=== PATIENT | female | born 1985 | race Caucasian/White ===

== ENCOUNTER 2020-12-18 18:33 | Emergency (ER) | payer OTHER ==
[2020-12-18 19:06] VITALS: TEMP 97.9
[2020-12-18] MEDS ORDERED: SODIUM CHLORIDE 0.9% 500 ML 500 ML IV STA (20:08)
[2020-12-18] MEDS ORDERED: ACETAMINOPHEN TAB 500 MG TAB PO STA (20:09)
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
[2020-12-18 20:47] LABS: Basophils # (A) 0.1 k/uL (0-0.2); Basophils % (A) 0 %; Eosinophils # (A) 0.1 k/uL (0-0.7); Eosinophils % (A) 1 %; HCT 39.8 % (34.0-46.0); HGB 13.6 gm/dL (11.4-16.0); Lymphocytes # (A) 1.6 k/uL (1.0-4.8); Lymphocytes % (A) 11 %; MCH 29.8 pg (25.0-35.0); MCHC 34.1 g/dL (31.0-37.0); MCV 87.5 fL (80.0-100.0); Mean Platelet Volume 7.6; Monocytes # (A) 0.7 k/uL (0-1.0); Monocytes % (A) 5 %; Neutrophils # (A) 11.8 k/uL (1.3-7.7); Neutrophils % (A) 83 %; Platelet Count 349 k/uL (150-450); RBC 4.55 m/uL (3.80-5.40); RDW 12.7 % (11.5-15.5); WBC 14.2 k/uL (3.8-10.6)
[2020-12-18 20:49] LABS: Appearance,Urine Clear (Clear); Bacteria,Urine Rare /hpf; Bilirubin,Urine Negative (Negative); Blood,Urine Moderate (Negative); Color,Urine Yellow; Glucose,Urine (UA) Negative (Negative); Ketones,Urine Negative (Negative); Leukocyte Esterase,Urine Negative (Negative); Mucus,Urine Rare /hpf; Nitrite,Urine Negative (Negative); Protein,Urine Negative (Negative); RBC,Urine 1 /hpf (0-5); Specific Gravity,Urine 1.014 (1.001-1.035); Squamous Epithelial Cell,Urine 1 /hpf (0-4); Urobilinogen,Urine <2.0 mg/dL (<2.0); WBC,Urine 2 /hpf (0-5)
[2020-12-18 20:51] VITALS: RESP 18
[2020-12-18 20:56] LABS: INR 0.9 (<1.2); Partial Thromboplastin Time 23.6 sec (22.0-30.0); Prothrombin Time 9.7 sec (9.0-12.0)
[2020-12-18 20:57] LABS: ALT 32 U/L (4-34); AST 25 U/L (14-36); African American GFR (CKD) >90 (>60 ml/min/1.73 sqM); Albumin 4.2 g/dL (3.5-5.0); Alkaline Phosphatase 85 U/L (38-126); Anion Gap 7 mmol/L; Blood Urea Nitrogen 12 mg/dL (7-17); Calcium 9.3 mg/dL (8.4-10.2); Carbon Dioxide 24 mmol/L (22-30); Chloride 107 mmol/L (98-107); Glucose 98 mg/dL (74-99); Non-African American GFR(CKD) >90 (>60 ml/min/1.73 sqM); Sodium 138 mmol/L (137-145); Total Bilirubin 0.2 mg/dL (0.2-1.3); Total Protein 7.1 g/dL (6.3-8.2)
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
--- NOTE | 2020-12-18 21:35 | XR ---
EXAMINATION TYPE: XR foot complete RT DATE OF EXAM: 12/18/2020 COMPARISON: None HISTORY: Pain TECHNIQUE: 3 views FINDINGS: Metatarsals are intact. I see no fracture nor dislocation. Joint spaces are normal. IMPRESSION: Negative right foot exam. No fracture.
--- NOTE | 2020-12-18 21:37 | XR ---
EXAMINATION TYPE: XR knee complete LT DATE OF EXAM: 12/18/2020 COMPARISON: 05/10/2010 HISTORY: Pain TECHNIQUE: 3 views FINDINGS: I see no fracture nor dislocation. Joint spaces are normal. There are no pathologic calcifi cations. IMPRESSION: Negative left knee exam. No change.
[2020-12-18] MEDS ORDERED: ACET/COD 300 MG/30 MG STARTER PACK 6 TAB BTL PO STA (22:07)
[2020-12-18 22:14] VITALS: BP 137/57; PULSE 71
== END 2020-12-18 22:15 | disposition home or self-care (01) ==
LOC: EC 18:33
DX: S30.1XXA Contusion of abdominal wall, initial encounter (principal); S20.212A Contusion of left front wall of thorax, initial encounter; S20.211A Contusion of right front wall of thorax, initial encounter; S80.02XA Contusion of left knee, initial encounter; F41.9 Anxiety disorder, unspecified; F17.200 Nicotine dependence, unspecified, uncomplicated; V43.52XA Car driver injured in collision with other type car in traffic accident, initial encounter; Y92.410 Unspecified street and highway as the place of occurrence of the external cause
CPT/HCPCS: 36415; 80053; 84484; 85025; 85610; 85730; 81001; 81025; 73562; 73630; 71260; 74177; 99284; 96360; 96361; Q9967

== ENCOUNTER → 2021-07-06 | Outpatient (CLI) | payer BC ==
--- NOTE | 2021-07-06 16:06 | FL ---
EXAMINATION TYPE: FL hysterosalpingography DATE OF EXAM: 07/06/2021 CLINICAL HISTORY: N97.9 Infertility. TECHNIQUE: The hysterosalpingogram procedure was explained to the patient. The risks, benefits, alte rnatives were discussed. An informed consent was then obtained. Timeout was performed. Patient was placed on the fluoroscopy table in supine view. Speculum was placed. The vaginal vault wa s cleansed with Betadine. The cervix was localized. Catheter was placed through the cervical os and t he balloon inflated. Under fluoroscopic observation contrast was administered. Fluoroscopic imaging w as performed. Overhead radiograph was obtained with delayed image. Discharge instructions were discus sed with the patient. Patient was released having tolerated the procedure very well. FINDINGS: There is a filling defect within the body of the uterus. Patient reports a fibroid which may account for this finding. Consider correlation with MRI pelvis. Others free flow of the contrast through the uterus to the normal appearing fallopian tubes. The fimbriated ends appear normal. There is free spil l promptly without evidence of obstruction. The balloon was deflated and the catheter withdrawn. Cerv ical os appears normal. Overhead radiograph has diminished contrast within the uterus with spill into the vaginal vault. IMPRESSION: 1. Filling defect within the mid body of the uterus may be related to extrinsic fibroid. Consider cor relation with MRI. 2. Patent fallopian tubes with free spill of contrast into the pelvis.
== END | disposition home or self-care (01) ==
LOC: RADUSWWP 13:16
PROVIDERS: ATTEND Obstetrics & Gynecology Obstetrics
DX: N85.8 Other specified noninflammatory disorders of uterus (principal)
CPT/HCPCS: 58340; 74740; Q9967

== ENCOUNTER → 2022-04-24 | Outpatient (CLI) | payer BC ==
[2022-04-24 22:44] LABS: Basophils # (A) 0.04 X 10*3/uL (0.00-0.10); Basophils % (A) 0.5 %; Eosinophils # (A) 0.34 X 10*3/uL (0.04-0.35); Eosinophils % (A) 4.6 %; HCT 39.6 % (37.2-46.3); HGB 13.1 g/dL (12.0-15.0); Immature Grans, Automated 0.3 %; Lymphocytes # (A) 2.01 X 10*3/uL (0.90-5.00); Lymphocytes % (A) 27.2 %; MCH 30.8 pg (27.0-32.0); MCHC 33.1 g/dL (32.0-37.0); Mean Platelet Volume 10.7 fL (9.5-12.2); Monocytes # (A) 0.48 X 10*3/uL (0.20-1.00); Monocytes % (A) 6.5 %; NRBC Per 100 WBC 0 /100 WBCS (0.0-0.0); Neutrophils % (A) 60.9 %; Platelet Count 303 X 10*3/uL (140-440); RBC 4.26 X 10*6/uL (4.10-5.20); RDW 13.4 % (11.5-14.5); WBC 7.39 X 10*3/uL (4.50-10.00)
== END | disposition home or self-care (01) ==
LOC: LABPAT 15:44
PROVIDERS: ATTEND Obstetrics & Gynecology Obstetrics
DX: Z01.812 Encounter for preprocedural laboratory examination (principal)
CPT/HCPCS: 85025

== ENCOUNTER 2022-04-29 09:21 | Day surgery (SDC) | payer BC ==
[2022-04-26 08:34] VITALS: BMI 49.1
[~2022-04-29 09:21] MED LIST: DEXAMETHASONE SOD PHOSPHATE 4 MG/ML 1 ML VIAL IV ONE; HYDROmorphone 0.5 MG/0.5 ML SYRINGE IVP PRN; LIDOCAINE 1% (10MG/ML) FOR IV START INTRADERMA PRN; ONDANSETRON 4 MG/2 ML VIAL IVP ONE; Pre Op ABX Message 1 EACH MISC MISCELLANE ONE; SCOPOLAMINE 1 MG/72 HR PATCH TRANSDERM ONE
[2022-04-29] MEDS: LACTATED RINGERS 1,000 ML IV SCH ×2 (10:35→11:22)
[2022-04-29] MEDS ORDERED: MIDAZOLAM 2 MG/2 ML VIAL ONE (11:24)
[2022-04-29] MEDS ORDERED: PROPOFOL 10 MG/ML 20 ML VIAL IV ONE (11:24)
[2022-04-29] MEDS ORDERED: LIDOCAINE 2% INJ 20 MG/ML (2 ML VIAL) ONE (11:24)
[2022-04-29] MEDS ORDERED: KETOROLAC 30 MG/ML 1 ML VIAL ONE (11:24)
[2022-04-29] MEDS ORDERED: SUCCINYLCHOLINE CHLORIDE 200 MG/10 ML VIAL IV ONE (11:24)
[2022-04-29] MEDS ORDERED: fentaNYL (PF) 50 MCG/ML 2 ML AMP ONE (11:24)
--- NOTE | 2022-04-29 11:56 | P.OP ---
Date of Procedure: 04/29/22 Preoperative Diagnosis: Uterine fibroid, family planning Postoperative Diagnosis: same plus arcuate uterus Procedure(s) Performed: Hysteroscopy, dilation and curettage Anesthesia: MAC Surgeon: Ellen Flores Estimated Blood Loss (ml): 5 IV fluids (ml): 300 Urine output (ml): 50 Pathology: other (Endometrial curettings) Condition: stable Disposition: PACU Indications for Procedure: 37-year-old 0 with a demented filling defect on hysterosalpingogram, infertility recommending visualization of the endometrial cavity. Of note 1 cm subserosal fibroid was appreciated on ultrasound Operative Findings: Proliferative endometrium is appreciated with arcuate shape of uterus no distinct septum is appreciated Description of Procedure: Patient was taken back to the operative suite were general anesthesia was obtained without difficulty by the anesthesia department. She is prepped and draped in the normal sterile fashion in the dorsal lithotomy position Wallace catheter is used to drain the bladder clear yellow urine. A weighted speculum posterior vaginal vault intralipids the cervix is visualized and grasped with a single-tooth tenaculum. The endocervical canal was then serially dilated. Hysteroscope was placed through the cervix and toward the endometrial cavity the above-noted findings. Pictures were taken and the hysteroscope was removed. A gentle curettage was then performed. This tissue was then sent to pathology for analysis. At this time the CO2 tenaculum taken off of the anterior lip of the cervix hemostasis was appreciated. All counts were noted to be correct 2. Patient tolerated procedure well and was taken the recovery room awake in stable condition.
[2022-04-29 12:09] VITALS: TEMP 96.8
[2022-04-29 12:39] VITALS: RESP 16
[2022-04-29 13:06] VITALS: BP 124/73; PULSE 66
== END 2022-04-29 13:27 | disposition home or self-care (01) ==
LOC: OR 09:21
PROVIDERS: ATTEND Obstetrics & Gynecology Obstetrics
DX: Z30.2 Encounter for sterilization (principal); N80.00 Endometriosis of the uterus, unspecified; Q51.810 Arcuate uterus; Z79.899 Other long term (current) drug therapy
CPT/HCPCS: 81025; 88305; 58558; J2250; J0330; J1100; J2405; J3010; J1885; J2704; J2001

== ENCOUNTER → 2023-08-11 | Outpatient (CLI) | payer BC ==
--- NOTE | 2023-08-12 12:07 | MM ---
Reason for Exam: Screening (asymptomatic). Baseline mammogram. Indicated Problems: Lump or thickening of the right side for 6 Month(s). Patient History: Menarche at age 12. Patient has no children. Last menstrual period: 07/20/2023 Risk Values: Chloé 5 year model risk: 0.5%. NCI Lifetime model risk: 11.2%. Prior Study Comparison: Patient's first Mammogram. Tissue Density: The breast tissue is almost entirely fat. Findings: Analyzed By CAD. There is no suspicious group of microcalcifications or new suspicious mass. Benign-appearing calcifications bilaterally. Palpable abnormality correlates with oil cyst in the right breast. Overall Assessment: Benign, BI-RAD 2 Management: Screening Mammogram of both breasts in [address] [facility] will attempt to contact patient to return for supplemental views and ultrasound if indicated. Patient should continue monthly self-breast exams. A clinical breast exam by your physician is recommended on an annual basis. This exam should not preclude additional follow-up of suspicious palpable abnormalities. Note on Chloé scores and lifetime risk: 1. A Chloé score greater than 3% is considered moderate risk. If this is the case, consider specialist referral to assess eligibility for a risk reducing agent. 2. If overall lifetime risk for the development of breast cancer is 20% or higher, the patient may qualify for future screening with alternating mammogram and breast MRI. Electronically signed and approved by: Avni Merritt DO
== END | disposition home or self-care (01) ==
LOC: RADMAMWWP 15:31
PROVIDERS: ATTEND Family Medicine
DX: Z12.31 Encounter for screening mammogram for malignant neoplasm of breast (principal)
CPT/HCPCS: 77063; 77067

== ENCOUNTER 2024-12-10 08:24 | Day surgery (SDC) | payer BC ==
[2024-12-07 14:38] VITALS: BMI 48.2
--- NOTE | 2024-12-09 21:27 | HP ---
HISTORY AND PHYSICAL PREOPERATIVE HISTORY AND PHYSICAL CHIEF COMPLAINT: Chronic streptococcal tonsillitis with tonsillar hypertrophy. HISTORY OF PRESENT ILLNESS: The patient is a pleasant 39-year-old female, who was recently seen in my office with complaints of having multiple episodes of chronic streptococcal tonsillitis despite treatment with various types of oral antibiotics. The patient states that during these episodes, she becomes quite toxic. She has had these multiple episodes for many years. She was seen approximately [address] Brink and at that time was told that she needed to have her tonsils out. She smokes and I advised her to quit for obvious health reasons. She has been diagnosed with COPD/emphysema and currently uses albuterol inhaler. At the time that she was seen in my office, clinical examination of the oropharynx revealed 4+ cryptic tonsils filled with white cheesy debris. It was recommended that the patient undergo a tonsillectomy under general anesthesia. PAST MEDICAL HISTORY: She has no known allergies to medications. MEDICATIONS: Her current medications include: 1. An inhaler for COPD (albuterol). 2. An antidepressant medication. PREVIOUS SURGERIES: Include a bilateral myringotomy with insertion of ventilation tubes. REVIEW OF SYSTEMS: Reveals that the respiratory system is positive for COPD/emphysema. The remainder of the review of systems is unremarkable. PHYSICAL EXAMINATION: GENERAL: The patient is a pleasant 39-year-old female, who is alert and cooperative. HEENT: The patient is normocephalic. Tympanic membranes are normal. Middle ear spaces are free of any fluid or infection. Pupils are equal, round, and reactive to light and accommodation. Extraocular movements are within normal limits. Intranasal examination reveals [id number] septal deviation with compensatory hypertrophy of the inferior turbinates. Examination of oropharynx reveals 4+ cryptic tonsillar hypertrophy. Remainder of the head and neck exam is unremarkable. CHEST/CARDIOVASCULAR: Both lung casey are clear to percussion and auscultation. The patient is in regular sinus rhythm. S1, S2 are present. No murmurs, S3, or S4. Peripheral pulses are bilaterally symmetrical and within normal limits. ABDOMEN: There is no evidence of any masses, megaly, or tenderness. The abdomen is soft. SKIN: Unremarkable. MUSCULOSKELETAL AND NEUROLOGICAL: Within normal limits. PELVIC/RECTAL: Deferred at this time because the patient has this done on a regular basis at her family physician's office. Remainder of physical exam is unremarkable. IMPRESSION: Chronic streptococcal tonsillitis with bilateral tonsil hypertrophy. PLAN: The patient is scheduled to undergo a tonsillectomy under general anesthesia in a.m. Attention, RNs in the pre-surgical area, I have ordered for this patient to receive 1000 mg of Ofirmev IV to be given once an intravenous line has been established. I have also ordered for this patient to receive 2 g of Ancef IV to be given once an intravenous line has been established. If the Pharmacy department sends a different pre-surgical prophylactic antibiotic to the pre-surgical area for this patient, that order should be cancelled, and the medication should be returned to the Pharmacy. Please make sure that the patient's account is credited appropriately. I have discussed the risks, benefits and alternative therapies for the above-mentioned procedure and for both sedation/analgesia as well as necessary blood product administration, if indicated, as they pertain to this patient. The patient has indicated his or her understanding and acceptance of the risks and procedures discussed. MMSIDRAL / IJN: [id number] /
[~2024-12-10 08:24] MED LIST changes: -DEXAMETHASONE SOD PHOSPHATE 4 MG/ML 1 ML VIAL IV ONE; +MIDAZOLAM 2 MG/2 ML VIAL IV PRN; -ONDANSETRON 4 MG/2 ML VIAL IVP ONE; -SCOPOLAMINE 1 MG/72 HR PATCH TRANSDERM ONE; +fentaNYL (PF) 50 MCG/ML 2 ML AMP IVP PRN
[2024-12-10] MEDS: IV FLUID CONTINUATION 1,000 ML IV ONE ×2 (09:13→10:57)
[2024-12-10] MEDS: ONDANSETRON 4 MG/2 ML VIAL IVP ONE (09:16)
[2024-12-10] MEDS: ACETAMINOPHEN IV (For NPO) 1,000 MG in EMPTY BAG 1 BAG IVPB ONE (09:16)
[2024-12-10] MEDS: LACTATED RINGERS 1,000 ML IV SCH (09:16)
[2024-12-10] MEDS: DEXAMETHASONE SOD PHOSPHATE 4 MG/ML 1 ML VIAL IV ONE (09:16)
[2024-12-10] MEDS: SCOPOLAMINE 1 MG/72 HR PATCH TRANSDERM STA (09:17)
[2024-12-10] MEDS ORDERED: ceFAZolin 2 GM in DEXTROSE 5% IN WATER 50 ML IVPB ONE (09:45)
[2024-12-10] MEDS ORDERED: GLYCOPYRROLATE 0.2 MG/ML 2 ML VIAL ONE (10:11)
[2024-12-10] MEDS ORDERED: PROPOFOL 10 MG/ML 20 ML VIAL IV ONE (10:11)
[2024-12-10] MEDS ORDERED: SUCCINYLCHOLINE CHLORIDE 200 MG/10 ML VIAL IV ONE (10:11)
[2024-12-10] MEDS ORDERED: ROCURONIUM 10 MG/ML (5 ML VIAL) IV ONE (10:11)
[2024-12-10] MEDS ORDERED: MIDAZOLAM 2 MG/2 ML VIAL ONE (10:11)
[2024-12-10] MEDS ORDERED: fentaNYL (PF) 50 MCG/ML 2 ML AMP ONE (10:11)
[2024-12-10] MEDS ORDERED: NEOSTIGMINE 1 MG/ML 10 ML VIAL ONE (10:11)
[2024-12-10] MEDS: CEFAZOLIN IV ONE (10:20)
[2024-12-10] MEDS: FLUID CONTINUATION IV ONE (10:20)
[2024-12-10] MEDS: BUPIVACAINE (PF) 0.5% 30 ML VIAL MISCELLANE ONE (11:08)
[2024-12-10 11:49] VITALS: TEMP 97
[2024-12-10 12:06] VITALS: RESP 18
[2024-12-10 13:00] VITALS: BP 127/86; PULSE 78
--- NOTE | 2024-12-12 16:39 | OP ---
OPERATIVE REPORT DATE OF SERVICE : PREOPERATIVE DIAGNOSIS: Chronic tonsillitis with tonsil hypertrophy. POSTOPERATIVE DIAGNOSIS: Chronic tonsillitis with tonsil hypertrophy. ANESTHESIA: General. OPERATIVE PROCEDURE: Tonsillectomy. COMPLICATIONS: None. ESTIMATED BLOOD LOSS: Less than 50 mL. OPERATIVE PROCEDURE: The patient was placed on the Operating Table in the supine position, after uneventful induction and endotracheal intubation, satisfactory general anesthesia was obtained. Next, the #3 Judah-Renny mouth gag was introduced into the oropharynx, expanded and suspended from a Peterson Stand. Following this, both peritonsillar areas were injected with the tonsillar forceps and pulled medially. The sickle knife was used to make an incision 4 mm lateral to the anterior pillar, beginning at the superior pole and working down to the inferior pole with a similar incision being carried out parallel to the posterior pillar. The angle scissors and the serrated Laura dissector were used to dissect the tonsil away from the tonsillar fossa. The tonsil itself was excised en toto using the tonsillar snare. Hemostasis was obtained using suction cautery. A sponge was placed in the empty tonsillar fossa. Attention was then directed to the left tonsil where the same procedure was carried out, with the left tonsil being grasped with the tonsillar forceps and pulled medially. The sickle knife was used to make an incision 4 mm lateral to the anterior pillar beginning at the superior pole and working down to the inferior pole with a similar incision being carried out parallel to the posterior pillar. Once again, the angle scissors and the serrated Laura dissector were used to dissect the tonsil away from the tonsillar fossa and the tonsil itself was excised en toto using the tonsillar snare. Hemostasis was obtained using suction cautery. A sponge was placed in the empty tonsillar fossa. The mouth gag was relaxed for a period of approximately seven minutes and upon re-expanding and removing all sponges, no evidence of any active bleeding was noted. At this point, the procedure was terminated. There were no intraoperative complications. The patient tolerated the procedure well and was returned to the Recovery Room in satisfactory condition. MMODL / IJN: [id number] /
== END 2024-12-10 13:44 | disposition home or self-care (01) ==
LOC: OR 08:24
PROVIDERS: ATTEND Otolaryngology
DX: J35.01 Chronic tonsillitis (principal); J03.00 Acute streptococcal tonsillitis, unspecified; J44.9 Chronic obstructive pulmonary disease, unspecified; F17.200 Nicotine dependence, unspecified, uncomplicated
CPT/HCPCS: 81025; 42826; J2250; J0330; J1100; J2710; J2405; J0690; J3010; J0131; J2704; J0665; J1596; 88304